=== PATIENT | female | born 2000 | race Caucasian/White ===

== ENCOUNTER 2024-02-27 01:30 | Emergency (ER) | payer MEDICAID ==
[~2024-02-27] VITALS: Ht 162.6 cm; Wt 0.5 kg
[2024-02-27 01:30] VITALS: BP 124/87; PULSE 87; RESP 17; TEMP 97.8; O2SAT 97
[2024-02-27 01:52] VITALS: O2SAT 99
[2024-02-27] MEDS: NACL 0.9% 1,000 ML IV ONE (02:07)
[2024-02-27] MEDS ORDERED: methylPREDNISolone SS 125 MG/2 ML VIAL ONE (02:07)
[2024-02-27] MEDS: diphenhydrAMINE 50 MG/ML VIAL IVP ONE (02:13)
[2024-02-27] MEDS: methylPREDNISolone SS 125 MG in WATER STERILE 2 ML IV ONE (02:14)
== END 2024-02-27 03:10 | disposition home or self-care (01) ==
LOC: MED 01:30
DX: L50.9 Urticaria, unspecified (principal)
CPT/HCPCS: 96361; 96374; 96375; 99284; J1200; J2930; J7030